=== PATIENT | male | born 1955 | race American Indian/Alaskan Native ===

== ENCOUNTER 2017-10-19 06:17 | Emergency (ER) | payer SELFPAY ==
--- NOTE | 2017-10-19 07:41 | Emergency Department Report ---
Abscess Boil HPI - HPI Chief Complaint: Skin/Abscess/Foreign Body Stated Complaint: CYST ON RT EYE Time Seen by Provider: 10/19/17 07:36 Location: Other (infected cyst forehead right eyelid) History: Yes Pain, Yes Previous History, No Fever, No Purulent Drainage, No Numbness, No Foreign Body, No Insect Bite Home Medications: Previous Rx's Medication Instructions Recorded Last Taken Type Acetaminophen [Acetaminophen TAB] 1,000 mg PO Q6HR PRN #30 tablet 10/19/17 Unknown Rx Cephalexin [Keflex] 500 mg PO Q8HR #30 cap 10/19/17 Unknown Rx Allergies/Adverse Reactions: Allergies Allergy/AdvReac Type Severity Reaction Status Date / Time No Known Allergies Allergy Unverified 10/19/17 06:44 ED Review of Systems ROS: Stated complaint: CYST ON RT EYE Other details as noted in HPI Constitutional: denies: chills, fever Eyes: denies: eye pain, eye discharge, vision change ENT: denies: ear pain, throat pain Respiratory: denies: cough, shortness of breath, wheezing Cardiovascular: denies: chest pain, palpitations Endocrine: no symptoms reported Gastrointestinal: denies: abdominal pain, nausea, diarrhea Genitourinary: denies: urgency, dysuria Musculoskeletal: denies: back pain, joint swelling, arthralgia Skin: lesions (infect cyst forehead ). denies: rash Neurological: denies: headache, weakness, paresthesias Psychiatric: denies: anxiety, depression Hematological/Lymphatic: denies: easy bleeding, easy bruising ED Past Medical Hx - Past Medical History Previous Medical History?: No - Surgical History Past Surgical History?: No - Social History Smoking Status: Never Smoker Substance Use Type: None - Medications Home Medications: Home Medications Medication Instructions Recorded Confirmed Last Taken Type Acetaminophen [Acetaminophen TAB] 1,000 mg PO Q6HR PRN #30 tablet 10/19/17 Unknown Rx Cephalexin [Keflex] 500 mg PO Q8HR #30 cap 10/19/17 Unknown Rx ED Abscess Boil Physical Exam - Exam General: Vital signs noted. No distress. Alert and acting appropriately. Size: 1 cm Exam: Yes Tenderness, Yes Fluctuance, Yes Surrounding Cellulites/Erythema, No Lymphangitis, No Crepitation, No Heart Murmur, No Normal Neurologic Exam, No Normal Circulation Exam: infected forehead cyst fluctuant, no eye involvement no vision changes I & D Note - I & D Note I & D Note: I&D forehead infected cyst, recurrent, via straight needle aspiration with 18g needle, 1cc purulent drainage, 2x2 dressing applied sterile pt agiven wound care instructions including symptoms of infection, pt verbalized understanding of same, pt tolerated procedure with minimal distress. ED Course Vital Signs 10/19/17 06:36 Temperature 98.1 F Pulse Rate 69 Respiratory 18 Rate Blood Pressure 134/83 O2 Sat by Pulse 100 Oximetry Critical care attestation.: If time is entered above; I have spent that time in minutes in the direct care of this critically ill patient, excluding procedure time. ED Medical Decision Making - Medical Decision Making pt is a 62 y/o aam with hx cyst recurrent infections of same who presented infected cyst to forehead x 2 weeks , pt attempted tx but was unsucessful, pt denies visual changes no fevers chills or headache, this does not involve eye, cyst I&D see procedure note all bleeding is controlled, pt tolerated same with minimal distress and given wound care instructions including follow up with dermatology and pcp as currently seeing, pt verbalized agreement and understanding of same, ED Disposition Clinical Impression: Infected cyst of skin Disposition: DC-01 TO HOME OR SELFCARE Is pt being admited?: No Does the pt Need Aspirin: No Condition: Good Instructions: Abscess (ED) Additional Instructions: follow up with your primary care doctor as scheduled, follow up with dermatology for recurrent infected cyst as directed Dr. Mckeon [phone] Prescriptions: Acetaminophen [Acetaminophen TAB] 1,000 mg PO Q6HR PRN #30 tablet PRN Reason: Pain Cephalexin [Keflex] 500 mg PO Q8HR #30 cap Referrals: PRIMARY CARE, [Primary Care Provider] - 3-5 Days Forms: Work/School Release Form(ED) Time of Disposition: 07:53
[2017-10-19 08:02] VITALS: BP 130/80
== END 2017-10-19 08:01 | disposition home or self-care (01) ==
LOC: ED 06:17
DX: L72.8 Other follicular cysts of the skin and subcutaneous tissue (principal)
CPT/HCPCS: 99282